=== PATIENT | female | born 1980 | race Caucasian/White ===

== ENCOUNTER 2016-11-24 16:45 | Emergency (ER) | payer BC ==
--- NOTE | 2016-11-24 18:08 | ER Document Report ---
ED Head/Face/Scalp Injury - General Chief Complaint: Head Injury Stated Complaint: INJURY/HEAD PAIN Time Seen by Provider: 11/24/16 18:05 Information source: Patient Notes: 36-year-old female was supposedly standing up while playing miniature golf and hit the back of her head. No loss of consciousness, no neck pain, no weakness or numbness, no vomiting, no blurry vision. Patient takes a baby aspirin daily. TRAVEL OUTSIDE OF THE [place] IN LAST 30 DAYS: No - HPI Patient complains to provider of: Contusion Injury to: Other - See above Location of problem: Head Where: Outdoors Timing: Better Context: Other - See above Loss consciousness: No loss of consciousness Remembers: Injury - Related Data Allergies/Adverse Reactions: acetaminophen [From Percocet] Allergy (Verified 11/24/16 16:53) oxycodone [From Percocet] Allergy (Verified 11/24/16 16:53) Past Medical History - General Information source: Patient - Social History Smoking Status: Unknown if Ever Smoked Cigarette use (# per day): No Chew tobacco use (# tins/day): No Smoking Education Provided: No Frequency of alcohol use: None Drug Abuse: None Family History: Reviewed & Not Pertinent Patient has suicidal ideation: No Patient has homicidal ideation: No Renal/ Medical History: Denies: Hx Peritoneal Dialysis Physical Exam - Vital signs Vitals: Temp Pulse Resp BP Pulse Ox 98.3 F 79 16 142/74 H 98 11/24/16 16:51 11/24/16 16:51 11/24/16 16:51 11/24/16 16:51 11/24/16 16:51 - Notes Notes: Reviewed vital signs and nursing note as charted by RN. CONSTITUTIONAL: Alert and oriented and responds appropriately to questions. Well -appearing; well-nourished HEAD: Normocephalic; atraumatic without hematoma, abrasion, or laceration. EYES: PERRL; Conjunctivae clear, sclerae non-icteric NECK: Supple without meningismus; non-tender NEURO: CN II through XII are intact. Moves all extremities equally; Motor and sensory function intact PSYCH: The patient's mood and manner are appropriate. Grooming and personal hygiene are appropriate. Course - Re-evaluation Re-evalutation: 11/24/16 18:07 Given the above history and physical examination I do not believe that the patient requires any laboratory work or imaging at this time. Patient will be discharged home with strict return precautions. - Vital Signs Vital signs: Temp Pulse Resp BP Pulse Ox 98.3 F 79 16 142/74 H 98 11/24/16 16:51 11/24/16 16:51 11/24/16 16:51 11/24/16 16:51 11/24/16 16:51 Discharge - Discharge Clinical Impression: Closed head injury Qualifiers: Encounter type: initial encounter Qualified Code(s): S09.90XA - Unspecified injury of head, initial encounter Condition: Good Disposition: HOME, SELF-CARE Additional Instructions: Come back immediately with any vomiting, weakness or numbness, blurry vision, or any other acute problems. Please make sure that you follow-up with your primary doctor as we have discussed.
[2016-11-24 18:12] VITALS: BP 145/74
== END 2016-11-24 18:25 | disposition home or self-care (01) ==
LOC: ER 16:45
DX: S09.90XA Unspecified injury of head, initial encounter (principal); W22.01XA Walked into wall, initial encounter; Y93.53 Activity, golf; Z88.5 Allergy status to narcotic agent; Z88.6 Allergy status to analgesic agent; Z79.82 Long term (current) use of aspirin
CPT/HCPCS: 99283